=== PATIENT | male | born 1955 | race Caucasian/White ===

== ENCOUNTER → 2017-02-03 | Outpatient (CLI) | payer BC ==
[~2017-02-03] MED LIST: REGADENOSON 0.4 MG/5 ML DISP.SYRIN. IV ONE
--- NOTE | 2017-02-03 09:29 | PCVCIMAG ---
APPROVED REPORT Study performed: 02/03/2017 07:57:27 EXAM: Comprehensive 2D, Doppler, and color-flow Echocardiogram Status: routine BSA: 2.09 HR: 58 bpm Rhythm: NSR Other Information Study Quality: Good Indications PVS'c. Abnormal EKG. Dizziness. 2D Dimensions LVEF(%): 61.73 (>50%) IVSd: 9.16 (7-11mm)LVOT Diam: 19.36 (18-24mm) LVDd: 47.71 mm PWd: 8.12 (7-11mm)Ascending Ao: 29.31 (22-36mm) LVDs: 31.87 (25-40mm) Left Atrium: 37.08 (27-40mm) Aortic Root: 28.60 mm LV Single Plane 4CH: 67.78 % LV Single Plane 2CH: 63.84 %Aguirre's LVEF: 65.81 % Biplane EF: 66.9 % Volumes Left Atrial Volume (Systole) Single Plane 4CH: 52.35 mLSingle Plane 2CH: 51.24 mL LA ESV Index: 26.00 mL/m2 Aortic Valve AoV Peak Geoffrey.: 1.28 m/s AO Peak Gr.: 6.57 mmHgLVOT Max P.40 mmHg LVOT Max V: 1.16 m/s RENAE Vmax: 2.66 cm2 Mitral Valve E/A Ratio: 1.6 MV Decel. Time: 200.79 ms MV E Max Geoffrey.: 0.89 m/s MV A Geoffrey.: 0.56 m/s TDI E/Lateral E': 8.90E/Medial E': 9.89 Medial E' Geoffrey.: 0.09 m/s Lateral E' Geoffrey.: 0.10 m/s Pulmonary Valve PV Peak Gr.: 1.64 mmHg Pulmonary Vein P Vein S: 0.67 m/sP Vein A: 0.27 m/s P Vein D: 0.63 m/sP Vein A Dur.: 72.7 msec P Vein S/D Ratio: 1.06 Left Ventricle The left ventricle is normal size. There is normal LV segmental wall motion. There is normal left ventricular wall thickness. Left ventricular systolic function is normal. The left ventricular ejection fraction is within the normal range. LVEF is 60-65%. The left ventricular diastolic function is normal. Right Ventricle The right ventricle is normal size. The right ventricular systolic function is normal. Atria The left atrium size is normal. The right atrium size is normal. Aortic Valve The aortic valve is normal in structure. No aortic regurgitation is present. There is no aortic valvular stenosis. Mitral Valve The mitral valve is normal in structure. There is no mitral valve regurgitation noted. No evidence of mitral valve stenosis. Tricuspid Valve The tricuspid valve is normal in structure. There is no tricuspid valve regurgitation noted. Pulmonic Valve The pulmonary valve is normal in structure. There is no pulmonic valvular regurgitation. Great Vessels The aortic root is normal in size. IVC is normal in size and collapses with >50% inspiration Pericardium There is no pericardial effusion. <Conclusion> The left ventricle is normal size. LVEF is 60-65%. The aortic valve is normal in structure. The mitral valve is normal in structure. The tricuspid valve is normal in structure. The pulmonary valve is normal in structure. The aortic root is normal in size. There is no pericardial effusion.
--- NOTE | 2017-02-03 16:16 | PCVCIMAG ---
APPROVED REPORT Exam: Nuclear Stress Test Indication: Abnormal EKG Patient Location: Out-Patient Stress Nurse: Tasia Marinelli RN, Laura Montano RN DE Tech:Wyatt AFSANEH Saha Ht: 5 ft 11 in Wt: 190 lbs BSA: 2.06 m2 HR: 65 bpm BP: 155/76 mmHg BMI: 26.4 Rhythm: NSR, NS ST & T Medical History Medical History: AGE Medications: No cardiac meds Allergies: No known drug allergies Pretest Chest Pain Characteristics: No chest pain Exercise History: Physically active NM EXAM: Myocardial Perfusion REST/STRESS Imaging Protocol: Rest Tc-99m/Stress Tc-99m 1 day Resting Data Rest SPECT myocardial perfusion imaging was performed in supine position 45 minutes following the intravenous injection of 10.5 mCi of Tc-99m Sestamibi. Time of rest injection: 0900 Date: 02/03/2017 Administration Route: IV Administration Site: Right Hand Pharmacologic Stress Pharmacologic stress test was performed by injecting Regadenoson 0.4 mg IV push followed by the intravenous injection of 34.7 mCi of Tc-99m Sestamibi. Time of stress injection: 1030 Date: 02/03/2017 Administration Route: IV Administration Site: Right Hand Gated Stress SPECT was performed 45 minutes after stress injection. The images were gated to evaluate regional wall motion and calculate left ventricular ejection fraction. Study Data Post stress, the left ventricular ejection was 66%.. SSS: 0 SRS: 7 SDS: 0 TID = 0.98. Perfusion There is a small area of moderately reduced uptake in the apical segment of the anterior wall which is seen on the stress images as well as the resting images. This area thickens and moves normally and is most consistent with attenuation artifact. Wall Motion Normal left ventricular wall motion. Nuclear Conclusion 1. LOW RISK STUDY Interpreted by: Yamileth Mcarthur MD Electronically Approved: 02/03/2017 16:15:23 Stress Test Details Stress Test: Pharmacologic stress was paired with low level exercise. Reason for pharmacologic stress test: physical limitation. HR Resting HR: 65 bpmMax Heart Rate (APMHR): 157 bpm Max HR Achieved: 127 bpmTarget HR (85% APMHR): 133 bpm % of APMHR: 80 Recovery HR: 81 bpm BP Resting BP: 155/76 mmHg Max BP: 178/81 mmHg ECG Resting ECG: Sinus Rhythm, nonspecific ST-T abnormalities Stress ECG: Sinus Rhythm, nonspecific ST-T abnormalities Recovery ECG: Sinus Rhythm, nonspecific ST-T abnormalities Clinical Reason for Termination: Completed protocol Stress Symptoms: Dyspnea Exercise duration: 4 min 00 sec Exercise capacity: 1.6 METs Symptoms resolved during recovery. Stress ECG Conclusion 1. ADEQUATE RESPONSE TO IV LEXISCAN 2. INADEQUATE HEART RATE FOR ECG DIAGNOSIS <Conclusion> 1. ADEQUATE RESPONSE TO IV LEXISCAN 2. INADEQUATE HEART RATE FOR ECG DIAGNOSIS
== END | disposition home or self-care (01) ==
LOC: PCVCIMAG 07:42
PROVIDERS: ATTEND Internal Medicine
DX: I49.3 Ventricular premature depolarization (principal); R42 Dizziness and giddiness; R94.31 Abnormal electrocardiogram [ECG] [EKG]
CPT/HCPCS: 78452; 93017; 93306; A9500; J2785